=== PATIENT | male | born 1955 | race African-American/Black ===

== ENCOUNTER 2019-12-15 09:55 | Emergency (ER) | payer MEDICAID, OTHER ==
[~2019-12-15] VITALS: Ht 188 cm; Wt 95.5 kg
[2019-12-15 10:44] LABS: BASOPHILS % (AUTO) 0.6 % (0.0-2.0); EOSINOPHILS % (AUTO) 0.9 % (1.0-6.0); HEMATOCRIT 41.8 % (41-53); HEMOGLOBIN 14.1 g/dL (13.5-17.5); LYMPHOCYTES % (AUTO) 14.6 % (22.0-44.0); MEAN CORPUSCULAR HEMOGLOBIN 32.2 pg (26.0-34.0); MEAN CORPUSCULAR HGB CONC 33.8 G/dL (31.0-37.0); MEAN CORPUSCULAR VOLUME 95 fL (80-100); MONOCYTES # (AUTO) 0.6 K/uL (0.1-1.0); MONOCYTES % (AUTO) 8.9 % (2.0-9.0); NEUTROPHILS # (AUTO) 5.4 K/uL (1.8-7.7); PLATELET COUNT (AUTO) 308 K/uL (150-450); RED BLOOD CELL COUNT(AUTO) 4.39 MIL/uL (4.50-5.90); RED CELL DISTRIBUTION WIDTH 15.2 % (11.5-14.5)
[2019-12-15] MEDS ORDERED: ACETAMINOPHEN 325 MG TABLET PO ONE (10:45)
[2019-12-15 10:52] LABS: ANION GAP 9 mmol/L (8-16); CALCIUM, TOTAL 8.8 mg/dL (8.8-10.5); CARBON DIOXIDE 27 mmol/L (22-29); CHLORIDE 103 mmol/L (98-107); CREATININE 1.33 mg/dL (0.60-1.30); GLOMERULAR FILTR. RATE CALC > 60 mL/min (>60); GLUCOSE,RANDOM 104 mg/dL (70-110); POTASSIUM 3.7 mmol/L (3.5-5.1); SODIUM SERUM 139 mmol/L (136-145); UREA NITROGEN, BLOOD 13 mg/dL (7-18)
[2019-12-15 10:58] LABS: ALANINE AMINOTRANSFERASE 21 U/L (12-78); ALBUMIN 3.6 g/dL (3.4-5.0); ALKALINE PHOSPHATASE 58 U/L (46-116); ASPARTATE AMINOTRANSFERASE 17 U/L (15-37); BILIRUBIN,TOTAL 0.6 mg/dL (0.1-1.0); TOTAL PROTEIN, SERUM 9.1 g/dL (6.4-8.2)
[2019-12-15 12:18] VITALS: BP 112/79
== END 2019-12-15 12:24 | disposition home or self-care (01) ==
LOC: EMS 09:57
DX: R05 Cough (principal); J02.9 Acute pharyngitis, unspecified; Z03.818 Encounter for observation for suspected exposure to other biological agents ruled out
CPT/HCPCS: 87635

== ENCOUNTER 2020-05-01 15:04 | Emergency (ER) | payer MEDICAID, OTHER ==
[~2020-05-01] VITALS: Ht 188 cm; Wt 86.4 kg
[2020-05-01] MEDS ORDERED: IBUPROFEN 800 MG TABLET PO ONE (16:30)
[2020-05-01 17:02] VITALS: BP 123/69
== END 2020-05-01 18:46 | disposition home or self-care (01) ==
LOC: EMS 15:06
DX: S63.502A Unspecified sprain of left wrist, initial encounter (principal); S20.211A Contusion of right front wall of thorax, initial encounter; M25.511 Pain in right shoulder; W01.0XXA Fall on same level from slipping, tripping and stumbling without subsequent striking against object, initial encounter; Y93.89 Activity, other specified; Y92.89 Other specified places as the place of occurrence of the external cause; Y99.0 Civilian activity done for income or pay

== ENCOUNTER 2025-07-29 14:29 | Emergency (ER) | payer MEDICARE, MEDICAID, OTHER ==
[~2025-07-29] VITALS: Ht 188 cm; Wt 97.7 kg
[2025-07-29] MEDS: LIDOCAINE 5% TRANSDERMAL PATCH TD ONE (15:30)
[2025-07-29] MEDS: KETOROLAC TROMETHAMINE 30 MG/ML VIAL IM ONE (15:31)
[2025-07-29 15:59] LABS: APPEARANCE,URINE CLEAR (CLEAR); GLUCOSE, URINE (UA) NEGATIVE (NEGATIVE); LEUKOCYTE ESTERASE ,URINE NEGATIVE (NEGATIVE); NITRATE,URINE NEGATIVE (NEGATIVE); OCCULT BLOOD,URINE SMALL (NEGATIVE); SPECIFIC GRAVITIY, URINE 1.019 (1.003-1.030)
[2025-07-29 16:07] LABS: SQUAMOUS EPITHELIAL CELL,UR Rare /LPF (None Seen)
[2025-07-29] MEDS ORDERED: IBUP-1492 PO (18:21)
[2025-07-29] MEDS ORDERED: METH-812 PO (18:21)
[2025-07-29 18:46] VITALS: BP 130/78; PULSE 60; RESP 18; TEMP 97.5; O2SAT 99
== END 2025-07-29 18:48 | disposition home or self-care (01) ==
LOC: EMS 14:32
DX: M54.41 Lumbago with sciatica, right side (principal)
CPT/HCPCS: 99285; 74176; 81001; 96372; J1885